=== PATIENT | female | born 1970 ===

== ENCOUNTER 2022-05-04 16:39 | Inpatient (IN) | payer OTHER ==
[2022-05-08] MEDS ORDERED: KEPPRA1000 MG (16:07)
[2022-05-08] MEDS ORDERED: TRILEPTAL600 MG (16:10)
[2022-05-08] MEDS ORDERED: CRESTOR10 MG (16:11)
[2022-05-08] MEDS ORDERED: SYNTHROID50 MCG (16:11)
[2022-05-10] MEDS ORDERED: MONTELUKAST SOD10 MG (11:14)
[2022-05-10] MEDS ORDERED: OMEPRAZOLE40 MG (11:14)
[2022-05-12] MEDS ORDERED: OXYC1TAB9 PO (15:14)
[2022-05-12] MEDS ORDERED: HYOSCYAMINE0.125 M1 SL (15:14)
== END 2022-05-12 17:00 | disposition home or self-care (01) | DRG 330 ==
LOC: SURH 05-10 06:30 → O/R 05-10 06:30 → SURG 05-10 09:45 → SURH 05-10 15:18
PROVIDERS: ADMIT Surgery; ATTEND Surgery
PROC: 0DBP4ZZ Excision of Rectum, Percutaneous Endoscopic Approach (ICD-10-PCS; 2022-05-10)
PROC: 0DJD8ZZ Inspection of Lower Intestinal Tract, Via Natural or Artificial Opening Endoscopic (ICD-10-PCS; 2022-05-10)
PROC: 0DTN4ZZ Resection of Sigmoid Colon, Percutaneous Endoscopic Approach (ICD-10-PCS; principal; 2022-05-10 09:45)
DX: K57.20 Diverticulitis of large intestine with perforation and abscess without bleeding (principal); K56.690 Other partial intestinal obstruction; G40.89 Other seizures; R19.4 Change in bowel habit; E03.9 Hypothyroidism, unspecified; I10 Essential (primary) hypertension; Z20.822 Contact with and (suspected) exposure to COVID-19